=== PATIENT | male | born 1975 | race Hispanic/Latino ===

== ENCOUNTER 2018-01-11 11:08 | Emergency (ER) | payer BC, SELFPAY ==
[2018-01-11 12:35] LABS: Bilirubin Negative (Negative); Blood, Urine Negative (Negative); Clarity CLEAR (Clear); Glucose, Urine (Dipstick) Negative (Negative); Leukocyte Negative (Negative); Nitrite Negative (Negative); Protein, Urine (Dipstick) Negative (Neg-Trace); Specific Gravity, Urine 1.012 (1.002-1.036); Urobilinogen 0.2 mg/dL (0.2-1.0); pH, Urine 5.5 (5.0-9.0)
[2018-01-11] MEDS ORDERED: cloNIDine 0.1 MG TAB ONE (13:09)
== END 2018-01-11 13:50 | disposition home or self-care (01) ==
LOC: ERS 11:08
DX: R35.0 Frequency of micturition (principal); I10 Essential (primary) hypertension; E66.9 Obesity, unspecified; E11.9 Type 2 diabetes mellitus without complications; F32.9 Major depressive disorder, single episode, unspecified; Z79.84 Long term (current) use of oral hypoglycemic drugs; Z79.899 Other long term (current) drug therapy
CPT/HCPCS: 81003; 99283

== ENCOUNTER 2025-06-06 09:35 | Inpatient (IN) | payer OTHER, SELFPAY ==
[2025-06-06 10:10] LABS: #Basophils Less than 0.03 10x3/uL (0.0-0.2); #Eosinophils 0.07 10x3/uL (0.0-0.7); #Monocytes 0.36 10x3/uL (0.11-0.59); #Neutrophils 4.82 10x3/uL (1.40-6.50); %Basophils 0.2 % (0.0-1.0); %Eosinophils 1.1 % (0.0-10.0); %Lymphocytes 17.1 % (21.0-51.0); %Monocytes 5.7 % (0.0-10.0); %Neutrophils 75.7 % (42.0-75.0); Hematocrit 43.7 % (42.0-52.0); Hemoglobin 14.1 g/dL (14.0-18.0); Mean Corpuscular Hemoglobin 27.8 pg (27.0-31.0); Mean Corpuscular Volume 86.0 fL (78.0-98.0); Platelet Count 199 10x3/uL (130-400); Red Blood Cell (RBC) Count 5.08 mill/uL (4.70-6.10); White Blood Cell (WBC) Count 6.36 10x3/uL (4.8-10.8)
[2025-06-06 10:30] LABS: ALT (SGPT) 13 U/L (Less than 45); AST (SGOT) 23 U/L (11-34); Albumin 4.0 g/dL (3.1-4.5); Alkaline Phosphatase 57 U/L (40-110); Anion Gap 14 mmol/L (10-20); BUN (Urea Nitrogen) 14 mg/dL (8.4-25.7); Bilirubin, Total 0.6 mg/dL (0.3-1.2); Calc. Creatinine Clearance 0 mL/min (70-130); Calcium 8.7 mg/dL (7.8-10.44); Carbon Dioxide 23 mmol/L (22-29); Chloride 108 mmol/L (98-107); Globulin 3.0 g/dL (2.4-3.5); Glucose 157 mg/dL (70-105); Potassium 3.8 mmol/L (3.5-5.1); Sodium 141 mmol/L (136-145)
[2025-06-06] MEDS ORDERED: Aspirin Chewable 81 MG TAB ONE (11:05)
[2025-06-06] MEDS ORDERED: Calcium Carbonate 500 MG ChewTAB PO PRN (11:05)
[2025-06-06] MEDS ORDERED: Acetaminophen 325 MG TAB PO PRN (11:05)
[2025-06-06] MEDS ORDERED: Senokot S 8.6-50 MG TAB PO PRN (11:05)
[2025-06-06] MEDS ORDERED: Ondansetron PF 4 MG/2 ML Vial IVP PRN (11:05)
[2025-06-06] MEDS: Nitroglycerin 2% Ointment 1 INCH/1 GM Packet TOP SCH (14:10)
[2025-06-06] MEDS ORDERED: Nitroglycerin 2% Ointment 1 INCH/1 GM Packet ONE (14:23)
[2025-06-06 18:02] VITALS: BMI 33.5
[2025-06-07 04:49] LABS: #Basophils Less than 0.03 10x3/uL (0.0-0.2); #Eosinophils 0.10 10x3/uL (0.0-0.7); #Monocytes 0.47 10x3/uL (0.11-0.59); #Neutrophils 3.07 10x3/uL (1.40-6.50); %Basophils 0.2 % (0.0-1.0); %Eosinophils 2.0 % (0.0-10.0); %Lymphocytes 26.9 % (21.0-51.0); %Monocytes 9.4 % (0.0-10.0); %Neutrophils 61.3 % (42.0-75.0); Hematocrit 40.6 % (42.0-52.0); Hemoglobin 13.2 g/dL (14.0-18.0); Mean Corpuscular Hemoglobin 28.0 pg (27.0-31.0); Mean Corpuscular Volume 86.2 fL (78.0-98.0); Platelet Count 186 10x3/uL (130-400); Red Blood Cell (RBC) Count 4.71 mill/uL (4.70-6.10); White Blood Cell (WBC) Count 5.01 10x3/uL (4.8-10.8)
[2025-06-07 05:11] LABS: ALT (SGPT) 11 U/L (Less than 45); AST (SGOT) 17 U/L (11-34); Albumin 3.7 g/dL (3.1-4.5); Alkaline Phosphatase 50 U/L (40-110); Anion Gap 9 mmol/L (10-20); BUN (Urea Nitrogen) 10 mg/dL (8.4-25.7); Bilirubin, Total 0.7 mg/dL (0.3-1.2); Calc. Creatinine Clearance 178 mL/min (70-130); Calcium 8.6 mg/dL (7.8-10.44); Carbon Dioxide 24 mmol/L (22-29); Cardiac Risk 4.3 (Less than 4.5); Chloride 109 mmol/L (98-107); Cholesterol 163 mg/dl (< 200 Desired); Globulin 2.4 g/dL (2.4-3.5); Glucose 84 mg/dL (70-105); HDL Cholesterol 38 mg/dL (>60 Neg Risk); LDL Cholesterol, Calculated 112 mg/dL; Magnesium 1.7 mg/dL (1.6-2.6); Potassium 3.8 mmol/L (3.5-5.1); Sodium 138 mmol/L (136-145); Triglycerides 65 mg/dL (Less than 150)
[2025-06-07] MEDS: Pantoprazole 40 MG DR.TAB PO SCH (08:36)
[2025-06-07] MEDS: Lisinopril 20 MG TAB PO SCH (08:37)
[2025-06-07] MEDS: Aspirin Chewable 81 MG TAB PO SCH (08:37)
[2025-06-07] MEDS: Enoxaparin 40 MG (0.4 mL) SYRINGE SC SCH (08:38)
[2025-06-08 11:39] VITALS: BP 138/87; TEMP 97.8
== END 2025-06-08 16:35 | disposition home or self-care (01) | DRG 310 ==
LOC: ERS 09:35 → SUATTDRO 09:35 → ERHOLD 11:09 → OBS 17:46 → OBSVTOIN 06-08 09:51
PROVIDERS: ADMIT Internal Medicine; ATTEND Internal Medicine
DX: I47.10 Supraventricular tachycardia, unspecified (principal); I48.92 Unspecified atrial flutter; I10 Essential (primary) hypertension; F32.A Depression, unspecified; I34.0 Nonrheumatic mitral (valve) insufficiency; E66.9 Obesity, unspecified; E78.5 Hyperlipidemia, unspecified; Z98.890 Other specified postprocedural states; Z98.84 Bariatric surgery status; Z79.899 Other long term (current) drug therapy; Z55.6 Problems related to health literacy
CPT/HCPCS: 36415; 36416; 71045; 78452; 80053; 80061; 83036; 83735; 83880; 84443; 84484; 85025; 93005; 93017; 93306; A9502; J1650; J2785